=== PATIENT | male | born 1965 | race Hispanic/Latino ===

== ENCOUNTER 2022-10-26 10:01 | Day surgery (SDC) | payer OTHER ==
[2022-10-24 12:06] VITALS: BMI 25.0
[2022-10-26] MEDS ORDERED: PROPOFOL 40 ML ONE (10:25)
[2022-10-26] MEDS ORDERED: Lidocaine 2% MPF 10 ML AMP (For Epidural Use) ONE (10:25)
[2022-10-26] MEDS ORDERED: Midazolam HCl 2 mg/2 ml Vial ONE (11:04)
[2022-10-26] MEDS ORDERED: PHENYLEPHRINE-NS 100 MCG/ML 10 ML SYRINGE ONE (11:38)
[2022-10-26] MEDS ORDERED: PROPOFOL 20 ML ONE (11:41)
== END 2022-10-26 12:50 | disposition home or self-care (01) ==
LOC: CSHSDC 10:01
PROVIDERS: ATTEND Internal Medicine Gastroenterology
PROC: 0DBL8ZZ Excision of Transverse Colon, Via Natural or Artificial Opening Endoscopic (ICD-10-PCS; principal; 2022-10-26)
PROC: 0DBN8ZZ Excision of Sigmoid Colon, Via Natural or Artificial Opening Endoscopic (ICD-10-PCS; principal; 2022-10-26)
DX: K57.31 Diverticulosis of large intestine without perforation or abscess with bleeding (principal); K63.5 Polyp of colon; K64.9 Unspecified hemorrhoids; D50.9 Iron deficiency anemia, unspecified; K58.9 Irritable bowel syndrome, unspecified; K21.9 Gastro-esophageal reflux disease without esophagitis; E11.9 Type 2 diabetes mellitus without complications; E78.5 Hyperlipidemia, unspecified; F10.10 Alcohol abuse, uncomplicated; I10 Essential (primary) hypertension; Z90.49 Acquired absence of other specified parts of digestive tract; Z95.1 Presence of aortocoronary bypass graft; Z79.84 Long term (current) use of oral hypoglycemic drugs; Z79.899 Other long term (current) drug therapy
CPT/HCPCS: 88305; J2250; J2704